=== PATIENT | male | born 1980 | race Caucasian/White ===

== ENCOUNTER 2023-11-13 14:01 | Emergency (ER) | payer OTHER, MEDICAID ==
[2023-11-13] MEDS: Acetaminophen 500 MG Tab PO ONE (15:01)
== END 2023-11-13 16:41 | disposition home or self-care (01) ==
LOC: JP.ED 14:01
DX: S61.214A Laceration without foreign body of right ring finger without damage to nail, initial encounter (principal); S61.212A Laceration without foreign body of right middle finger without damage to nail, initial encounter; F17.210 Nicotine dependence, cigarettes, uncomplicated; W26.0XXA Contact with knife, initial encounter; Y92.89 Other specified places as the place of occurrence of the external cause; Y99.0 Civilian activity done for income or pay
CPT/HCPCS: 12001; 73140; 99283; A9270

== ENCOUNTER 2024-07-07 14:49 | Emergency (ER) | payer MEDICAID ==
[2024-07-07] MEDS: Ketorolac 30 MG/ML SDV IM ONE (17:00)
[2024-07-07] MEDS: Cyclobenzaprine 10 MG Tab PO ONE (17:01)
== END 2024-07-07 17:34 | disposition home or self-care (01) ==
LOC: JP.ED 14:49
DX: M54.50 Low back pain, unspecified (principal); F17.210 Nicotine dependence, cigarettes, uncomplicated; Z79.899 Other long term (current) drug therapy
CPT/HCPCS: 72100; 72190; 73562; 96372; 99284; A9270; J1885

== ENCOUNTER 2025-02-12 17:16 | Emergency (ER) | payer MEDICAID ==
[2025-02-12 17:36] LABS: BASOPHILS ABSOLUTE AUTO 0.05 K/uL (0.00-0.10); BASOPHILS PERCENT AUTO 0.4 % (0.1-1.3); EOSINOPHILS ABSOLUTE AUTO 0.50 K/uL (0.00-0.40); EOSINOPHILS PERCENT AUTO 3.5 % (0.0-5.4); IMMATURE GRAN ABSOLUTE AUTO 0.10 K/uL (0.00-0.23); IMMATURE GRAN PERCENT AUTO 0.7 % (0.0-0.7); LYMPHOCYTES ABSOLUTE AUTO 1.40 K/uL (0.8-3.3); LYMPHOCYTES PERCENT AUTO 9.9 % (11.4-47.7); MONOCYTES ABSOLUTE AUTO 1.25 K/uL (0.20-0.90); MONOCYTES PERCENT AUTO 8.9 % (3.3-12.6); NEUTROPHILS ABSOLUTE AUTO 10.80 K/uL (1.0-7.6); NEUTROPHILS PERCENT AUTO 76.6 % (40.0-78.1); PLATELET COUNT,PLT 357 K/uL (130-375); WHITE BLOOD CELL COUNT,WBC 14.1 K/uL (3.2-11.0)
[2025-02-12 17:54] LABS: RED BLOOD CELL COUNT 6.31 M/uL (4.14-5.76)
[2025-02-12 17:56] LABS: A/G RATIO 1.1 (1.2-2.2); ALANINE AMINOTRANSFERASE,ALT 21 U/L (12-78); ASPARTATE AMNIOTRANSFERASE,AST 10 U/L (15-37); BILIRUBIN TOTAL 0.6 mg/dL (0.2-1.0); BLOOD UREA NITROGEN,BUN 11 mg/dL (7-18); CARBON DIOXIDE,CO2 29 mmol/L (21-32); CHLORIDE,CL 105 mmol/L (100-108); CREATININE 0.9 mg/dL (0.8-1.3); EST CRCL DRUG DOSING (CG) 95.50 mL/min; ESTIMATED GFR 109 mL/min (>60); GLUCOSE RANDOM 107 mg/dL (74-106); POTASSIUM,K 4.0 mmol/L (3.6-5.2); PROTEIN TOTAL,TP 7.4 g/dL (6.4-8.2); SODIUM,NA 140 mmol/L (140-148)
[2025-02-12 18:14] LABS: APPEARANCE,URINE SLIGHTLY CLOUDY (CLEAR); GLUCOSE,URINE NEGATIVE (NEGATIVE); OCCULT BLOOD,URINE NEGATIVE (NEGATIVE)
[2025-02-12] MEDS: Ketorolac 15 MG/ML SDV IVPUSH ONE (18:18)
[2025-02-12 18:20] LABS: SQUAMOUS EPITHELIAL CELLS,UR RARE /HPF; UROTHELIAL CELLS,URINE NOT SEEN /HPF
[2025-02-12 18:21] LABS: AMPHETAMINES SCREEN, URINE NEGATIVE (NEGATIVE); METHADONE SCREEN, URINE NEGATIVE (NEGATIVE); METHAMPHETAMINES SCREEN, URINE NEGATIVE (NEGATIVE); OXYCODONE SCREEN,URINE NEGATIVE (NEGATIVE); PROPOXYPHENE SCREEN,URINE NEGATIVE (NEGATIVE); THC SCREEN,URINE 50 NG/ML PRESUMPTIVE POSITIVE (NEGATIVE)
== END 2025-02-12 19:30 | disposition home or self-care (01) ==
LOC: JP.ED 17:16
DX: K61.1 Rectal abscess (principal); F17.210 Nicotine dependence, cigarettes, uncomplicated
CPT/HCPCS: 36415; 80053; 80305; 81001; 83605; 85025; 86140; 96374; 99283; J1885

== ENCOUNTER 2025-02-13 07:22 | Day surgery (SDC) | payer MEDICAID ==
[~2025-02-13 07:22] MED LIST: Midazolam 1 MG/ML 2 ML SDV ONE; Propofol 200 MG/20 ML SDV ONE; fentaNYL 100 MCG/2 ML SDV ONE
[2025-02-13] MEDS ORDERED: Propofol 200 MG/20 ML SDV ONE (10:30)
[2025-02-13] MEDS: Lidocaine 1% with EPINEPHrine 1:100,000 50 ML MDV ONE (10:40)
[2025-02-13] MEDS: Lactated Ringers 1,000 ML IV SCH (11:19)
== END 2025-02-13 11:50 | disposition home or self-care (01) ==
LOC: JP.SDS 07:22
PROVIDERS: ATTEND Surgery
DX: K61.1 Rectal abscess (principal)
CPT/HCPCS: 46040; 87070; 87075; 87205; A4217; J0665; J2250; J2704; J3010; J7120; 00902-QZ